=== PATIENT | female | born 1935 | race Caucasian/White ===

== ENCOUNTER → 2017-07-11 | Outpatient (CLI) | payer MEDICARE, MEDICAID ==
--- NOTE | 2017-07-11 16:14 | CARDIOVASCULAR REPORT ---
"Cerebrovascular Exam Indications: Follow-up carotid 433.10. IMPRESSIONS 1. The bilateral vertebral arteries are patent with normal antegrade flow. 2. Study suggests less than 20% stenosis involving the right internal carotid artery. 3. Study suggests 20-49% stenosis involving the left internal carotid artery. History: Coronary artery disease. Risk factors: Diabetes mellitus. Carotid duplex study. Complete study and Doppler flow study including spectral analysis, color and cruz scale imaging. Height: Height: 152.4cm. Height: 60in. Weight: Weight: 65.8kg. Weight: 144.7lb. Body mass index: BMI: 28.3kg/m^2. Body surface area: BSA: 1.69m^2. Location: Vascular laboratory. Patient status: Outpatient. Tables: Arterial flow: + +--------+--------+ |Location |V sys |V ed | + +--------+--------+ |Right CCA - proximal|80.9cm/s|18.1cm/s| + +--------+--------+ |Right CCA - distal |76.8cm/s|16.8cm/s| + +--------+--------+ |Right ECA |93.7cm/s|--------| + +--------+--------+ |Right ICA - proximal|68.4cm/s|17.5cm/s| + +--------+--------+ |Right ICA - mid |69.8cm/s|18.9cm/s| + +--------+--------+ |Right ICA - distal |82.3cm/s|21.4cm/s| + +--------+--------+ |Right vertebral |60.3cm/s|--------| + +--------+--------+ |Left CCA - proximal |91.8cm/s|18.2cm/s| + +--------+--------+ |Left CCA - distal |72.3cm/s|17cm/s | + +--------+--------+ |Left ECA |99.3cm/s|--------| + +--------+--------+ |Left ICA - proximal |83.6cm/s|24.5cm/s| + +--------+--------+ |Left ICA - mid |87.4cm/s|20.7cm/s| + +--------+--------+ |Left ICA - distal |81.1cm/s|20.7cm/s| + +--------+--------+ |Left vertebral |73.5cm/s|--------| + +--------+--------+ Velocity ratios: + + + + + + | |Right, V sys|Right, V ed|Left, V sys|Left, V ed| + + + + + + |Max ICA/dist CCA|1.07 |1.27 |1.21 |1.44 | + + + + + + (Report amended ) Electronically signed by: Parish Salgado [id number]"
== END ==
LOC: RT 06-11 15:15
DX: I65.23 Occlusion and stenosis of bilateral carotid arteries (principal); I25.10 Atherosclerotic heart disease of native coronary artery without angina pectoris; I50.30 Unspecified diastolic (congestive) heart failure; I10 Essential (primary) hypertension; E78.5 Hyperlipidemia, unspecified; R42 Dizziness and giddiness; R55 Syncope and collapse; R06.09 Other forms of dyspnea; R60.9 Edema, unspecified